=== PATIENT | male | born 1985 | race African-American/Black ===

== ENCOUNTER 2016-06-02 08:00 | Emergency (ER) | payer MEDICAID, OTHER ==
[~2016-06-02] VITALS: Ht 180.3 cm; Wt 90.0 kg
[2016-06-02] MEDS ORDERED: CLON0.5T4 PO (08:05)
[2016-06-02] MEDS ORDERED: PHEN100C12 PO (08:05)
[2016-06-02] MEDS ORDERED: LORAZEPAM 2MG/ML CPJ IV ONE (08:15)
[2016-06-02 09:50] LABS: ALBUMIN 3.9 g/dL (3.4-5.0); AMMONIA 43 uMol/L (<32); ANION GAP 13; BASOPHILS % 0.5 % (0.0-2.0); CALCIUM 8.6 mg/dL (8.5-10.1); CARBON DIOXIDE 27 mEq/L (21-32); CHLORIDE 106 mEq/L (98-107); EOSINOPHILS % 0.3 % (0.0-5.0); ETHANOL BLOOD < 10 mg/dL; HEMATOCRIT. 43.9 % (42.0-52.0); HEMOGLOBIN. 14.4 g/dL (14.0-18.0); INDEX HEMOLYSI 1 (1-3); INDEX ICTERIC 1 (1-4); INDEX LIPEMIC 1 (1-3); LYMPHOCYTES % 8.2 % (20.0-50.0); MEAN CORPUSCULAR HEMOGLOBIN 32.7 pg (28.0-32.0); MEAN CORPUSCULAR HGB CONC 32.8 g/dL (31.0-37.0); MEAN CORPUSCULAR VOLUME 99.7 fL (80.0-94.0); MEAN PLATELET VOLUME 8.2 fl (7.4-10.4); MONOCYTES % 9.6 % (2.0-8.0); NEUTROPHILS % 81.4 % (40.0-76.0); PLATELET 226 x1000/uL (130-400); RED BLOOD CELL COUNT 4.41 mill/uL (4.7-6.1); RED CELL DISTRIBUTION WIDTH 14.5 % (11.6-14.6); UREA NITROGEN BLOOD 12 mg/dL (7-21); WHITE BLOOD COUNT 22.3 x1000/uL (4.5-11.0)
[2016-06-02 09:53] LABS: ALANINE AMINOTRANSFERASE 99 IU/L (13-61); TROPONIN I 0.03 ng/mL (0.00-0.04); eGFR > 60 mL/min (>60)
[2016-06-02 09:57] LABS: PHENYTOIN 4.5 ug/mL (10-20)
[2016-06-02 10:01] LABS: CARBAMAZEPINE < 0.5 ug/mL (4-12); PHENOBARBITAL < 2.1 ug/mL (15.0-40.0); VALPROIC ACID < 3.0 ug/mL (50-100)
[2016-06-02] MEDS ORDERED: PHENYTOIN SODIUM IV ONE (10:30)
[2016-06-02] MEDS ORDERED: SODIUM CHLORIDE 0.9% IV ONE (10:30)
[2016-06-02] MEDS ORDERED: SODIUM CHLORIDE 0.9% IV SCH (10:32)
[2016-06-02] MEDS ORDERED: PHENYTOIN SODIUM IV SCH (10:32)
[2016-06-02 13:16] VITALS: BP 99/66
== END 2016-06-02 13:17 | disposition home or self-care (01) ==
LOC: ER 08:13 → EDBD 08:13 → ER 13:17
DX: G40.409 Other generalized epilepsy and epileptic syndromes, not intractable, without status epilepticus (principal); R00.0 Tachycardia, unspecified; R53.1 Weakness; R51 Headache; Z91.14 Patient's other noncompliance with medication regimen
CPT/HCPCS: 36415; 80053; 80156; 80165; 80184; 80185; 82140; 84484; 85025; 93005; 96365; 96375; 99285; G0482; J1165; J2060; Z7610

== ENCOUNTER 2016-07-06 21:56 | Emergency (ER) | payer OTHER ==
[~2016-07-06] VITALS: Ht 180.3 cm; Wt 81.8 kg
[~2016-07-06 21:56] MED LIST: CLON0.5T4 PO; PHEN100C12 PO
[2016-07-06] MEDS ORDERED: HYDROCODONE/ACETAMINOPHEN 5/325MG TABLET PO ONE (22:15)
[2016-07-07 00:16] VITALS: BP 122/78
== END 2016-07-07 00:22 | disposition home or self-care (01) ==
LOC: ER 22:33
DX: M25.572 Pain in left ankle and joints of left foot (principal)
CPT/HCPCS: 73590; 73610; 99284; Z7610

== ENCOUNTER 2016-08-07 07:28 | Emergency (ER) | payer OTHER ==
[~2016-08-07] VITALS: Ht 172.7 cm; Wt 75.0 kg
[2016-08-07 08:10] LABS: BASOPHILS % 0.8 % (0.0-2.0); EOSINOPHILS % 0.5 % (0.0-5.0); HEMATOCRIT. 44.4 % (42.0-52.0); HEMOGLOBIN. 14.6 g/dL (14.0-18.0); LYMPHOCYTES % 11.7 % (20.0-50.0); MEAN CORPUSCULAR HEMOGLOBIN 31.9 pg (28.0-32.0); MEAN CORPUSCULAR HGB CONC 32.9 g/dL (31.0-37.0); MEAN CORPUSCULAR VOLUME 96.9 fL (80.0-94.0); MEAN PLATELET VOLUME 8.6 fl (7.4-10.4); MONOCYTES % 7.2 % (2.0-8.0); NEUTROPHILS % 79.8 % (40.0-76.0); PLATELET 206 x1000/uL (130-400); RED BLOOD CELL COUNT 4.58 mill/uL (4.7-6.1); RED CELL DISTRIBUTION WIDTH 13.4 % (11.6-14.6); WHITE BLOOD COUNT 12.8 x1000/uL (4.5-11.0)
[2016-08-07] MEDS ORDERED: LEVETIRACETAM 1,000 MG in SODIUM CHLORIDE 0.9% 100 ML IV ONE (08:15)
[2016-08-07 08:17] LABS: ALBUMIN 3.6 g/dL (3.4-5.0); ANION GAP 16; CALCIUM 8.6 mg/dL (8.5-10.1); CARBON DIOXIDE 23 mEq/L (21-32); CHLORIDE 104 mEq/L (98-107); ETHANOL BLOOD < 10 mg/dL; INDEX HEMOLYSI 1 (1-3); INDEX ICTERIC 1 (1-4); INDEX LIPEMIC 1 (1-3); UREA NITROGEN BLOOD 8 mg/dL (7-21)
[2016-08-07 08:18] LABS: CLARITY URINE CLEAR (CLEAR); COLOR URINE YELLOW (YELLOW); GLUCOSE URINE NEGATIVE (NEGATIVE); KETONES URINE TRACE (NEGATIVE); LEUKOCYTE ESTERASE URINE NEGATIVE (NEGATIVE); NITRITE URINE NEGATIVE (NEGATIVE); OCCULT BLOOD URINE 2+ (NEGATIVE); PROTEIN URINE NEGATIVE (NEGATIVE)
[2016-08-07 08:24] LABS: ALANINE AMINOTRANSFERASE 31 IU/L (13-61); PHENYTOIN 2.1 ug/mL (10-20); eGFR > 60 mL/min (>60)
[2016-08-07 08:38] LABS: WBC URINE 0-2 /hpf (0-2)
[2016-08-07 08:39] LABS: SQUAMOUS EPITHELIAL CELL URINE NONE SEEN /lpf (RARE/1+)
[2016-08-07 08:40] LABS: BACTERIA URINE TRACE
[2016-08-07 08:46] LABS: *AMPHETAMINES SCREEN URINE NEGATIVE (NEGATIVE); *BARBITURATES SCREEN URINE NEGATIVE (NEGATIVE); *BENZODIAZEPINES SCREEN URINE PRESUMTIVE POSITIVE (NEGATIVE); *COCAINE SCREEN URINE NEGATIVE (NEGATIVE); CANNABINOID URINE SCREEN PRESUMTIVE POSITIVE (NEGATIVE); ECSTASY MDMA SCREEN URINE NEGATIVE (NEGATIVE); METHADONE URINE SCREEN NEGATIVE (NEGATIVE); OPIATES URINE SCREEN NEGATIVE (NEGATIVE); PHENCYCLIDINE URINE SCREEN NEGATIVE (NEGATIVE)
[2016-08-07] MEDS ORDERED: ACETAMINOPHEN 325MG TABLET PO ONE (09:00)
[2016-08-07] MEDS ORDERED: PHENYTOIN SODIUM 1,000 MG in SODIUM CHLORIDE 0.9% 100 ML IV ONE (09:00)
[2016-08-07 12:07] VITALS: BP 123/67
== END 2016-08-07 12:08 | disposition home or self-care (01) ==
LOC: ER 07:29
DX: R56.9 Unspecified convulsions (principal)
CPT/HCPCS: 36415; 80053; 80185; 80305; 81001; 82962; 85025; 96365; 96367; 99284; G0482; J1165; J1953; Z7610; J7050

== ENCOUNTER 2018-10-02 20:34 | Emergency (ER) | payer MEDICAID, OTHER ==
[~2018-10-02] VITALS: Ht 180.3 cm; Wt 93.0 kg
[~2018-10-02 20:34] MED LIST changes: +CLON0.5T12 PO; -CLON0.5T4 PO
[2018-10-02 22:57] LABS: CLARITY URINE CLEAR (CLEAR); COLOR URINE DARK YELLOW (YELLOW); KETONES URINE TRACE (NEGATIVE); LEUKOCYTE ESTERASE URINE NEGATIVE (NEGATIVE); NITRITE URINE NEGATIVE (NEGATIVE); OCCULT BLOOD URINE NEGATIVE (NEGATIVE); PH URINE 5.5 (4.5-8.0); PROTEIN URINE NEGATIVE (NEGATIVE); SPECIFIC GRAVITY URINE 1.032 (1.005-1.030)
[2018-10-02 23:13] LABS: *BARBITURATES SCREEN URINE NEGATIVE (NEGATIVE); *BENZODIAZEPINES SCREEN URINE NEGATIVE (NEGATIVE); *COCAINE SCREEN URINE NEGATIVE (NEGATIVE); METHADONE URINE SCREEN NEGATIVE (NEGATIVE)
[2018-10-02 23:14] LABS: *AMPHETAMINES SCREEN URINE PRESUMTIVE POSITIVE (NEGATIVE); CANNABINOID URINE SCREEN PRESUMTIVE POSITIVE (NEGATIVE); OPIATES URINE SCREEN NEGATIVE (NEGATIVE); PHENCYCLIDINE URINE SCREEN NEGATIVE (NEGATIVE)
[2018-10-02 23:22] LABS: BASOPHILS % 1.1 % (0.0-2.0); EOSINOPHILS % 8.2 % (0.0-5.0); HEMATOCRIT. 43.5 % (42.0-52.0); HEMOGLOBIN. 14.8 g/dL (14.0-18.0); LYMPHOCYTES % 31.1 % (20.0-50.0); MEAN CORPUSCULAR HEMOGLOBIN 32.8 pg (28.0-32.0); MEAN CORPUSCULAR VOLUME 96.5 fL (80.0-94.0); MEAN PLATELET VOLUME 7.8 fl (7.4-10.4); MONOCYTES % 9.6 % (2.0-8.0); PLATELET 274 x1000/uL (130-400); RED CELL DISTRIBUTION WIDTH 15.4 % (11.6-14.6)
[2018-10-02 23:28] LABS: CHLORIDE 104 mEq/L (98-107)
[2018-10-02 23:33] LABS: ETHANOL BLOOD < 10 mg/dL
[2018-10-03] MEDS ORDERED: HALOPERIDOL LACTATE 5MG/ML VIAL IM ONE (17:00)
[2018-10-03] MEDS ORDERED: DIPHENHYDRAMINE 50MG/ML VIAL IM PRN (17:00)
[2018-10-03] MEDS ORDERED: LORAZEPAM 2MG/ML CPJ IM PRN (17:00)
[2018-10-04 14:30] VITALS: BP 101/68
== END 2018-10-04 14:55 | disposition home or self-care (01) ==
LOC: ER 20:34
DX: R45.851 Suicidal ideations (principal); F22 Delusional disorders; Z76.5 Malingerer [conscious simulation]; Z59.0 Homelessness; G40.909 Epilepsy, unspecified, not intractable, without status epilepticus; F17.210 Nicotine dependence, cigarettes, uncomplicated
CPT/HCPCS: 36415; 80053; 80305; 80320; 81003; 85025; 96372; 99285; J1200; J1630; J2060; G0480